=== PATIENT | male | born 1975 | race Caucasian/White ===

== ENCOUNTER 2019-01-22 18:14 | Emergency (ER) | payer OTHER ==
[~2019-01-22] VITALS: Ht 172.7 cm; Wt 95.3 kg
[~2019-01-22 18:14] MED LIST: CHERATUSSIN DA480 ML PO; NOHOMEMEDICATIONS; NORCO 7.5-3251 EACH PO; PERCOCET 5-3251 EACH PO; ZPAK PO
[2019-01-22] MEDS ORDERED: EXCEDRIN MIGRA1 EAC1 PO (18:22)
[2019-01-22 18:38] LABS: URINE BILIRUBIN NEGATIVE (Negative); URINE BLOOD 3+ (Negative); URINE CLARITY SL CLOUDY; URINE COLOR YELLOW; URINE GLUCOSE-RANDOM NEGATIVE (Negative); URINE KETONES NEGATIVE (Negative); URINE LEUKOCYTES-REFLEX NEGATIVE (Negative); URINE NITRITE-REFLEX NEGATIVE (Negative); URINE PROTEIN TRACE (Negative); URINE SPECIFIC GRAVITY >= 1.030 (1.005-1.030); URINE UROBILINOGEN 0.2 E.U./dl (0.2-1.0)
[2019-01-22 18:43] LABS: SQUAMOUS 0-3 Few /LPF (0-3); URINE RBC >20 Many /HPF (0-2); URINE WBC-REFLEX 0-5 Rare /HPF (0-5)
[2019-01-22 18:44] LABS: CASTS None Seen /LPF (None Seen); CRYSTALS None Seen /LPF (None Seen); MUCUS 0-3 Light strn/LPF (None Seen)
[2019-01-22 18:50] LABS: HEMATOCRIT 44.9 % (42.0-52.0); HEMOGLOBIN 15.3 gm/dL (14.0-18.0); MCH 27.3 pg (26.0-34.0); MCHC 34.1 g/dL (28.0-37.0); MCV 80.3 fL (80.0-100.0); MPV 8.8 fl. (7.2-11.1); RBC 5.6 mil/uL (4.50-6.00); RDW-CV 12.9 % (10.5-14.5); WBC 11.7 thou/uL (4.0-11.0)
[2019-01-22 18:59] LABS: CALCIUM 8.6 mg/dL (8.5-10.1); CREATININE 1.1 mg/dL (0.6-1.3); POTASSIUM 3.2 mmol/L (3.5-5.1)
[2019-01-22 19:04] LABS: TOTAL BILIRUBIN 0.6 mg/dL (<0.1-1.0); TOTAL PROTEIN 7.8 g/dL (6.4-8.2)
[2019-01-22] MEDS ORDERED: FLOMAX0.4 MG PO (19:46)
[2019-01-22] MEDS ORDERED: CIPROFLOXACIN500 M1 PO (19:46)
[2019-01-22] MEDS ORDERED: NORCO 5-325 TA1 EAC1 PO (19:46)
[2019-01-22 20:20] VITALS: BP 134/94
== END 2019-01-22 20:24 | disposition still patient (30) ==
LOC: M.ERS 18:14
PROVIDERS: Emergency Medicine Emergency Medical Services
DX: N20.0 Calculus of kidney (principal); R06.02 Shortness of breath

== ENCOUNTER 2020-02-13 09:12 | Emergency (ER) | payer OTHER ==
[~2020-02-13] VITALS: Ht 172.7 cm; Wt 86.2 kg
--- NOTE | ~2020-02-13 | EMS ---
[facility] [address] [place] [address] EMS Patient Care Report Name: GABRIELA MART JR Room: [facility] YRN Munoz#: [id number] Admission: 02/13/20 Attend Phys: Discharge: 02/13/20 Date of : 73 Report #: [id number] THIS REPORT FOR: //name// Report Transmitted: 02/13/2020 11:09 EMS Care Summary [facility] [employer] [facility] Incident [id number] @ 02/13/2020 08:24 Incident Location [address] [place] [address] [place] [address] Patient GABRIELA MART Male, 44 Years 1975 Patient Address [address] [place] [address] [place] [address] Patient History None Reported, Patient Allergies No known allergies, Patient Medications None Reported, Chief Complaint fatigue Disposition Transported No Lights/Reliance Dispatch Reason Sick Person Transported To [facility] Narrative Dispatched to a residence for 44y/o male with poss. Covid symptoms. Pt. has 12 day history of fatigue, general weakness, SOB, intermittent fever. Pt. breath sounds were clear. Pt. also c/o loss of smell and taste. Pt. denies known exposure but has been out shopping several times. Pt. was transported to [facility] [address] [facility] [place] [address] EMS Patient Care Report Name: GABRIELA MART JR Room: [facility]#: [id number] Admission: 02/13/20 Attend Phys: Discharge: 02/13/20 Date of : 73 Report #: [id number] [facility]. Initial Vitals @09:00P: 90,R: 18,BP: 146/88,SpO2: 98, @08:45P: 98,R: 18,BP: 150/92,GCS: 15,Temp: 96.7F,SpO2: 97,Revised Trauma: 12, Assessments @08:45MENTAL:No Abnormalities,SKIN:No Abnormalities,HEENT:Head/Face: No Abnormalities,Eyes: No Abnormalities,Neck/Airway: No Abnormalities,LUNG SOUNDS:General: No Abnormalities,Left Upper: No Abnormalities,Right Upper: No Abnormalities,Left Lower: No Abnormalities,Right Lower: No Abnormalities,ABDOMEN:General: No Abnormalities,Left Upper: No Abnormalities,Right Upper: No Abnormalities,Left Lower: No Abnormalities,Right Lower: No Abnormalities,PELVIS//GI:No Abnormalities,EXTREMITIES:Left Arm: No Abnormalities,Right Arm: No Abnormalities,Left Leg: No Abnormalities,Right Leg: No Abnormalities,PULSE:NEURO:No Abnormalities, Impression COVID-19 - Suspected - no known exposure Timeline 08:22,Call Received 08:24,Dispatched 08:26,En Route 08:38,Initial Responder On Scene 08:38,On Scene 08:40,At Patient 08:45,BP: 150/92 M,PULSE: 98,RR: 18 R,SPO2: 97 Ox,ETCO2: ,BG: ,PAIN: ,GCS: 15, 08:50,Depart Scene 09:00,BP: 146/88 M,PULSE: 90,RR: 18 R,SPO2: 98 Ox,ETCO2: ,BG: ,PAIN: ,GCS: , 09:09,At Destination 09:12,Transfer Patient 09:45,Call Closed 09:45,In District Disclaimer v1.1 Copyright 2020 [employer] This EMS Care Summary contains data elements from the applicable legal record (which may be displayed differently). It is designed to provide pertinent information for the following purposes: continuity of care, clinical quality, and state data reporting. The complete legal record is available to ED staff and administrators of the receiving hospital in [employer]'s Patient Tracker. All data is provided "as is."
[~2020-02-13 09:12] MED LIST changes: +CIPROFLOXACIN500 M1 PO; +EXCEDRIN MIGRA1 EAC1 PO; +FLOMAX0.4 MG PO; +NORCO 5-325 TA1 EAC1 PO
[2020-02-13] MEDS ORDERED: TYLENOL COLD &1 EACH PO (09:25)
[2020-02-13] MEDS ORDERED: EXCEDRIN CAPLE1 EACH PO (09:25)
[2020-02-13 10:45] VITALS: BP 157/106
== END 2020-02-13 10:45 | disposition home or self-care (01) ==
LOC: M.ERS 09:12
DX: U07.1 COVID-19 (principal)